=== PATIENT | female | born 1940 | race Caucasian/White ===

== ENCOUNTER 2023-10-04 19:57 | Emergency (ER) | payer OTHER, SELFPAY ==
[2023-10-04] VITALS (16 sets, daily range): BP systolic 75–165; BP diastolic 55–101; PULSE 87–122; RESP 17–21; TEMP 36.4; O2SAT 94–100
[2023-10-04] MEDS: MORPHINE SULFATE (*CRX) 4 MG/ML INJ IV PUSH (20:51)
--- NOTE | 2023-10-04 21:14 | PC.NURSE ---
patients POA expresses to provider and myself that patients wishes are to not receive any IV fluids or medications that will sustain life. he states that wishes are to be give comfort measures. patient received 4mg of morphine and is no longer restless and does not appear in any pain anymore.
--- NOTE | 2023-10-04 21:25 | PC.NURSE ---
Initial contact with patient and family. Patients son asked if he has a preference to hospice care companies, states I don't know anything about Hospice at all. My friends have used it before but I don't know anything about it. Pt given names of the companies that serve [place], states has heard of [employer] and that's the company they want. Provider made aware.
--- NOTE | 2023-10-04 22:07 | PC.NURSE ---
Nuvia from [facility] called at [phone] getting further information about the patient and requesting order from provider. informed provider of this update and they sent in an order
--- NOTE | 2023-10-04 22:51 | ED.AMS ---
HPI - Altered Mental Status General Chief Complaint: Altered Mental Status Stated Complaint: UNRESPONSIVE, TACHYPNIC Time Seen by Provider: 10/04/23 20:06 History of Present Illness HPI narrative: This is an 82-year-old female presenting from her acute care facility for concerns of altered mental status. Patient has a known history of chronic respiratory failure, hypertension, old CVA, diabetes, pulmonary hypertension. Today wall half-way staff were trying to wash the patient in the shower she became more encephalopathic and agitated. They called EMS for assistance. Patient is DNR and on comfort care measures. Her brother who is also her durable power of contract attorney provide collateral information upon his arrival to the ED. Patient is normally alert times x0 and there has been no acute changes in her mentation however she is more agitated today. correction staff do note that she has Ativan for agitation but no other medications that would concur that this. Patient is not presently on hospice however the brother inquires about hospice transition as patient's wishes are to have a peaceful and natural . Patient was placed on oxygen by EMS however she was able to be titrated down the simple nasal cannula here in the ED. Patient is not able to provide additional collateral information that to her chronic medical conditions and chronic encephalopathy. The patient does not appear in respiratory distress but is agitated and trying to pull off her clothing. Remainder of collateral information was provided by EMS, brother at bedside, EMR review and half-way paperwork. Brother is requesting hospice evaluation at this time and does not want any interventions in alignment with patient's wishes and comfort care status. Related Data Allergies Allergy/AdvReac Type Severity Reaction Status Date / Time No Known Allergies Allergy Verified 10/04/23 20:29 Review of Systems Review of Systems: Unable to be fully obtain secondary to patient's level of mental status. Exam Narrative: GENERAL: Chronically ill-appearing, not awake or alert. Slightly agitated pulling at her clothing. HEAD: [Normocephalic, atraumatic.] EYES: [PERRLA and EOMI.] ENT: Nares clear, no rhinorrhea or epistaxis. Mucous membranes moist. NECK: Supple. CHEST: [Clear to auscultation. No respiratory distress.] No wheezing, rhonchi, rales HEART: [Regular rate and rhythm]. No murmur heard. [Normal peripheral pulses.] ABDOMEN: [Soft, nondistended], [nontender], [No rigidity or guarding] EXTREMITIES: Normal range of motion. [No edema.] SKIN: Warm, dry, no rash. NEURO: Moves all extremities with apparent asymmetry, awake and alert times 0, chronic baseline per family and documentation. PSYCH: Slightly agitated Course Vital Signs Vital signs: Vital Signs Pulse Rate 117 H 10/04/23 19:56 Respiratory Rate 20 10/04/23 19:56 Blood Pressure 137/98 H 10/04/23 19:56 Temperature 36.4 C L 10/04/23 20:11 Pulse Rate 88 10/04/23 22:41 Respiratory Rate 18 10/04/23 22:41 Blood Pressure 129/84 10/04/23 22:41 Pulse Oximetry 98 10/04/23 22:41 Oxygen Delivery Nasal Cannula 10/04/23 22:41 Oxygen Flow Rate 3 10/04/23 22:41 MDM - Altered Mental Status MDM Narrative Medical decision making narrative: This is an 82-year-old female presenting from her long-term facility. The patient is comfort care with DNI/DNR. Durable power of contract attorney present at bedside and provides collateral information. correction was initially concerned that patient had increased agitation that was unresponsive to her Ativan or other medications at home. Patient was not in any respiratory distress and is on simple nasal cannula right now for comfort. She appears at her baseline according to the family member present at bedside and the family member wishes for no interventions whatsoever including of fluids, oxygen supplementation. Patient's wishes were for a n
--- NOTE | 2023-10-04 23:24 | PC.NURSE ---
care and report given to LAST Gomez. all questions answered. offered family food and drink, updated family as well
--- NOTE | 2023-10-04 23:40 | PC.NURSE ---
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 States will contact electronic repair troubleshooter and return call mateo.
--- NOTE | 2023-10-05 00:38 | PC.NURSE ---
ON 10/04/2023 AT APPROX 0025 INESSA NURSE ARRIVED HERE TO ASSESS AND ADMIT PT TO INPATIENT HOSPICE.
[2023-10-05 01:50] VITALS: BP 105/71; PULSE 83; RESP 17; O2SAT 96
[2023-10-05 03:12] VITALS: BP 119/73; PULSE 85; RESP 17; O2SAT 97
== END 2023-10-05 04:33 | disposition hospice, home (50) ==
PROVIDERS: Emergency Provider Student in an Organized Health Care Education/Training Program; PCP Family Medicine
DX: R41.82 Altered mental status, unspecified (principal); F05 Delirium due to known physiological condition; J96.10 Chronic respiratory failure, unspecified whether with hypoxia or hypercapnia; I10 Essential (primary) hypertension; I27.20 Pulmonary hypertension, unspecified; E11.9 Type 2 diabetes mellitus without complications; Z66 Do not resuscitate; Z86.73 Personal history of transient ischemic attack (TIA), and cerebral infarction without residual deficits; Z79.899 Other long term (current) drug therapy
CPT/HCPCS: 96374; 99284; J2270